=== PATIENT | male | born 1955 | race Caucasian/White ===

== ENCOUNTER 2021-09-06 10:08 | Outpatient (CLI) | payer MEDICARE ==
[~2021-09-06 10:08] MED LIST: SODIUM CHLORIDE 0.9% 500 ML 500 ML in EMPTY BAG 1 BAG IV PRN
[2021-09-06] MEDS ORDERED: CASIRIVIMAB/IMDEVIMAB (EUA) 1,200 MG in SODIUM CHLORIDE 0.9% 100 ML IVPB ONE (10:30)
[2021-09-06] MEDS ORDERED: SODIUM CHLORIDE 0.9% 50 ML IVPB ONE (11:00)
[2021-09-06 11:14] VITALS: RESP 18
[2021-09-06 11:57] VITALS: BP 118/62; PULSE 67; TEMP 98
== END 2021-09-06 12:11 | disposition home or self-care (01) ==
LOC: PROCWHC3 10:08
PROVIDERS: ATTEND Internal Medicine
DX: U07.1 COVID-19 (principal)
CPT/HCPCS: 96360; Q0243; M0243

== ENCOUNTER → 2022-05-04 | Outpatient (CLI) | payer MEDICARE ==
[2022-05-04 13:32] LABS: African American GFR (CKD) >90 (>60 ml/min/1.73 sqM); Blood Urea Nitrogen 17 mg/dL (9-20); Non-African American GFR(CKD) >90 (>60 ml/min/1.73 sqM)
--- NOTE | 2022-05-04 16:55 | CT ---
EXAMINATION TYPE: CT soft tissue neck w con DATE OF EXAM: 05/04/2022 COMPARISON: None HISTORY: leukemia. CT DLP: 527 mGycm CONTRAST: Patient injected with 100ml mL of Isovue 300. TECHNIQUE: Axial images at 3 mm thick sections. Reconstructed images in the coronal plane and sagitt al plane are reviewed. FINDINGS: Limited CT sections are obtained the lung apices. The lung apices appear clear. CT neck: The torus tubarius and fossa of Rosenmuller are normal. There appears to be some fullness to the adenoid region. [employer]ist spaces are normal. Paranasal sinuses and mastoid air cells within th e field of view are clear. Are clear. Parotid glands appear normal and symmetrical. Submandibular glands are normal. Small left submandibu lar lymph node is present. Parapharyngeal spaces are normal. No suspicious adenopathy is evident. Olivares bmental space is unremarkable. The hypopharynx appears within normal limits. Vocal cord level appear symmetrical. Thyroid as visualized is normal. Some beam hardening artifact limits the anterior inferior portions. Osseous structures are normal. IMPRESSIONS: 1. There is some prominence of the adenoid. 2. No suspicious changes to suggest metastatic disease.
--- NOTE | 2022-05-04 18:23 | CT ---
EXAMINATION TYPE: CT ChestAbdPelvis w con DATE OF EXAM: 05/04/2022 INDICATION: leukemia. COMPARISON: None CT DLP: 2469.7 mGycm CONTRAST: Performed with Oral Contrast and with IV Contrast, patient injected with 100ml combined mL of Isovue 300. TECHNIQUE: Axial images at 5 mm thick sections. Reconstructed images in the coronal plane. Delayed images through the kidneys. FINDINGS: CT CHEST: Portion of the thyroid visualized is normal. No suspicious lung nodules or focal infiltrates are present. No enlarged mediastinal or hilar adenopathy is evident. There is a 1.4 cm left axillary lymph node. The ascending aorta diameter at the level of the main pulmonary artery is 4.0 cm. The main pulmonary artery diameter at the bifurcation is 2.8 cm. Mild coronary artery calcification is present. CT ABDOMEN: Liver: Normal Spleen: Normal Pancreas: Normal Adrenal glands: The adrenal glands are normal. Gallbladder: Normal Kidneys: No masses are evident. No hydronephrosis is present. No cysts are present. Delayed images were obtained through the kidneys, which remain unremarkable. Aorta: Vascular calcification is within the aorta. Inferior vena cava: Normal. CT PELVIS: Loops of bowel within the abdomen and pelvis are normal. There are loops of bowel which are incom pletely distended or lack oral contrast limiting their evaluation. Appendix: Not identified. No dilated tubular structure inflammatory changes or other secondary signs of appendicitis are evident. Urinary bladder: Normal. Genitourinary structures: Prostate is normal Osseous structures: No suspicious lytic or sclerotic lesions. IMPRESSIONS: 1. 1.4 cm left axillary lymph node. 2. Suspicious changes for metastatic disease are otherwise evident
== END | disposition home or self-care (01) ==
LOC: RADCTMAIN 12:40
PROVIDERS: ATTEND Internal Medicine
DX: Z03.89 Encounter for observation for other suspected diseases and conditions ruled out (principal); C91.10 Chronic lymphocytic leukemia of B-cell type not having achieved remission
CPT/HCPCS: 82565; 84520; 70491; 71260; 74177; 36415; Q9967